=== PATIENT | female | born 1955 | race Caucasian/White ===

== ENCOUNTER → 2016-05-11 | Outpatient (CLI) | payer OTHER ==
[2016-05-11 10:07] LABS: HEMOGLOBIN 14.5 g/dL (12.2-16.2); LYMPH # 1.5 K/mm3 (0.7-4.5); LYMPH % 25.7 % (10-50.0)
[2016-05-11 11:14] LABS: BUN 14 mg/dL (7-18); FREE THYROXIN INDEX 9.1 ug/dl (5.93-13.13)
[2016-05-11 11:15] LABS: GFR (ESTIMATED) 74 ML/MIN (59-)
== END ==
LOC: LAB 09:50
PROVIDERS: Internal Medicine Adolescent Medicine
DX: E03.9 Hypothyroidism, unspecified (principal); R56.9 Unspecified convulsions; E55.9 Vitamin D deficiency, unspecified

== ENCOUNTER → 2017-02-17 | Outpatient (CLI) | payer OTHER ==
[2017-02-17 15:36] LABS: HEMOGLOBIN 15.1 g/dL (12.2-16.2); LYMPH # 1.4 K/mm3 (0.7-4.5); LYMPH % 21.6 % (10-50.0)
--- NOTE | 2017-02-17 16:16 | RADIOLOGY REPORT PS360 ---
CHEST(2 VIEWS-NOT PORTABLE) HISTORY: PRE OP ORDERING PHYSICIAN: PREM SULLIVAN MD PATIENT AGE: 61 years COMPARISON: None available FINDINGS: The cardiomediastinal silhouette and pulmonary vascularity are within normal limits. The lungs are clear without infiltrates, suspicious nodules, or pleural effusions. No acute bony abnormalities. IMPRESSION: Negative chest, no acute finding
[2017-02-17 18:31] LABS: BUN 13 mg/dL (7-18)
[2017-02-17 18:32] LABS: GFR (ESTIMATED) 64 ML/MIN (59-)
== END ==
LOC: RAD 14:29
PROVIDERS: Orthopaedic Surgery
DX: M67.51 Plica syndrome, right knee (principal); Z01.810 Encounter for preprocedural cardiovascular examination; Z01.811 Encounter for preprocedural respiratory examination; Z01.812 Encounter for preprocedural laboratory examination

== ENCOUNTER 2017-02-22 07:57 | Day surgery (SDC) | payer OTHER ==
[~2017-02-22] VITALS: Ht 170.2 cm; Wt 58.1 kg
--- NOTE | 2017-02-22 10:56 | Anesthesia Record ---
Anesthesia Record Part II Discharge time: 1125 Destination: Same day surgery PACU nurse assessment review? Yes Patient is: Awake, Stable Anesthesia complications? No at 1051
--- NOTE | 2017-02-22 10:56 | Anesthesia Record ---
Anesthesia Record Part I Total IV fluids: 1800 EBL (ml): 0 Urine Output: 0 B/P: 122/86 % SaO2: 99 Pulse: 77 Resps: 10 Temp: 97.8 Patient is: Drowsy, Stable Stable to PACU at: 1055 at 1056
--- NOTE | 2017-02-22 12:19 | Operative Note ---
Procedure/Operative Record Date of Procedure: 02/22/17 Referring physician: Dr. Arnold Pre-op diagnosis: 1. Plica syndrome, LEFT knee 2. Osteoarthritis, LEFT knee 3. Chronic pain, left knee Post-op diagnosis: 1. Plica syndrome (pathological medial plica), LEFT knee 2. Chondromalacia patella LEFT knee 3. Osteoarthritis, LEFT knee Procedure performed: 1. Examination under anesthesia, left knee 2. Arthroscopic resection/debridement medial plica, left knee 3. Arthroscopic chondroplasty patellofemoral compartment, left knee Surgeon: Benito MCKEON,Darío Laird Laboratory Geneticist(s): Janae Rivas Anesthesia: General Indications: The patient is a 61-year-old female with left knee for over 2 years which failed to respond satisfactorily to conservative management. There is evidence of chondromalacia patella on the MRI and features of plica syndrome clinically. Clinically her symptoms are consistent with the above diagnosis. Resection/ debridement of the medial plica and chondroplasty is indicated to relieve the pain and improve function of the knee. Findings: Examination of the left knee under anesthesia, showed a stable knee joint. There is a small amount of knee joint effusion. Knee range of motion is from 0- 150 of flexion. Operative findings showed a prominent and thickened medial plica. Also noted were localized chondromalacia/grade 2 degenerative changes over the central facet of patellar articular surface and the femoral trochlea. The medial and lateral compartments are relatively well preserved. The medial and lateral menisci are intact. The anterior cruciate ligament and posterior cruciate ligaments were intact. Mild synovitis was noted. Description of procedure: On the day of the procedure the patient and her were met in the preoperative area and positively identified. A physical examination was performed and documented. The limb was marked. I again discussed the diagnosis, management options including both nonsurgical and surgical. I discussed the proposed surgical procedure, risks and benefits and alternatives in detail. The complications discussed include but are not limited to infection, injury to nerves and blood vessels, injury to the ligaments and tendons, knee stiffness, arthrofibrosis, incomplete relief, incomplete functional recovery, DVT, PE, CRPS , complications related to anesthesia including heart attack, stroke and even . I have also discussed about the likely need for further surgery in future. I told her that there were no guarantees with surgery; she could be no better or even worse. We also discussed the postoperative recovery and rehabilitation protocol. I believe the patient to be well informed with regard to the proposed surgery. I told her that it would take few months for full recovery of the knee after surgery. She expressed a full understanding and wished to proceed with the planned surgery. The consent form was reviewed and signed. She specifically requested not to be given any local anesthetic to the portals or intra-articularly into the knee joint. Patient was brought to the operating room and placed supine on the operating table. All the bony prominences were appropriately padded. A general anesthesia was administered by the anesthesia team. A well-padded tourniquet cuff was placed over the LEFT upper thigh. Examination of the LEFT knee under anesthesia was performed. A small amount of knee effusion was noted. Knee range of motion was 0-150 degrees of flexion. Knee joint is noted to be ligamentously stable. The LEFT knee was then prepped and draped in the usual sterile fashion. A preprocedure timeout was performed as per protocol. Administration of prophylactic IV antibiotics was confirmed with the anesthetic team. The arthroscopic portals were marked on the skin. The limb was exsanguinated with Esmarch bandage and the tourniquet was inflated to 300 mmHg- see the nursing notes for tourniquet time. I then made an anterolateral arthroscopic portal and introduced the arthroscope and performed the knee examination. I then created an anteromedial portal under direct vision. The arthroscopic findings included a prominent and thickened medial plica. Localized chondromalacia/grade 2 degenerative changes over the central facet of patellar articular surface and the femoral trochlea. The medial and lateral compartments are relatively well preserved. The medial and lateral menisci are intact. The anterior cruciate ligament and posterior cruciate ligaments were intact. Mild synovitis was noted. After performing a thorough arthroscopic examination, I proceeded to perform medial plica resection and chondroplasty. With the arthroscopic shaver, I performed a chondroplasty removing the loose articular cartilage to a stable margin over the femoral trochlea and the patellar articular surface. I then resected the thickened and inflamed medial plica and debrided it with the arthroscopic shaver. The knee joint was thoroughly washed out at the end of the procedure. The instruments were removed, the knee joint was emptied of the irrigating fluid and the arthroscopic sheath was removed. The portals were sutured with 4-0 Ethilon [id number] sutures. No local anesthetic was injected is either to the portals or intra-articularly. Sterile dressings and the pressure bandage was applied. The tourniquet cuff was removed from the thigh. The patient was then reversed from the anesthetic and transferred onto the [facility]. She was transported to the postoperative recovery area in stable condition. She tolerated the procedure well and there were no immediate complications. The swab, needle and instrument counts were correct according to scrub team at the end of the procedure. Following recovery from the anesthetic the patient was discharged home with appropriate written instructions. Follow- up in my office in 2 weeks time for removal of sutures. EBL (ml): 0 Implant: None Complications: None Specimens: None
[2017-02-22 14:05] VITALS: BP 152/80
== END 2017-02-22 12:45 | disposition home or self-care (01) ==
LOC: SDC 07:57
PROVIDERS: Orthopaedic Surgery
PROC: 0SBD4ZZ Excision of Left Knee Joint, Percutaneous Endoscopic Approach (ICD-10-PCS; principal; 2017-02-22 09:30)
DX: M17.12 Unilateral primary osteoarthritis, left knee (principal)
CPT/HCPCS: J2405; J2704

== ENCOUNTER → 2017-03-14 | Outpatient (CLI) | payer OTHER ==
--- NOTE | 2017-03-14 11:23 | CARDIOVASCULAR REPORT ---
"Venous Exam Indications: 729.5 Pain in limb. IMPRESSIONS 1. There is no evidence of significant Reflux. 2. No evidence of deep or superficial vein thrombosis involving the left lower extremity History: Risk factors: Recent surgery: ARTHROSCOPY. Left lower extremity venous duplex evaluation. Doppler flow study including spectral analysis, color and barcenas scale imaging. Location: Vascular laboratory. Patient status: Outpatient. Tables: Venous flow and imaging: + +-------+ + |Location |Overall|Flow properties | + +-------+ + |Left common femoral |Patent |Normal phasicity; spontaneous; | | | |normal augmentation; compressible | + +-------+ + |Left saphenofemoral junction|Patent |Compressible | + +-------+ + |Left profunda femoral |Patent |Compressible | + +-------+ + |Left femoral |Patent |Normal phasicity; spontaneous; | | | |normal augmentation; compressible | + +-------+ + |Left greater saphenous |Patent |Normal phasicity; spontaneous; | | | |normal augmentation; compressible | + +-------+ + |Left popliteal |Patent |Normal phasicity; spontaneous; | | | |normal augmentation; compressible | + +-------+ + |Left posterior tibial |Patent |Compressible | + +-------+ + |Left peroneal |Patent |Compressible | + +-------+ + |Left gastrocnemius |Patent |Compressible | + +-------+ + |Left soleal |Patent |Compressible | + +-------+ + (Report amended ) Electronically signed by: Severino Key [id number]"
== END ==
LOC: RT 10:23
DX: M67.52 Plica syndrome, left knee (principal)